=== PATIENT | female | born 1975 | race African-American/Black ===

== ENCOUNTER 2019-06-15 22:09 | Emergency (ER) | payer SELFPAY ==
[~2019-06-15] VITALS: Ht 165.1 cm; Wt 62.0 kg
[2019-06-16] MEDS ORDERED: KETOROLAC 30MG/ML VIAL IM ONE
[2019-06-16 00:25] VITALS: BP 114/78
== END 2019-06-16 00:25 | disposition home or self-care (01) ==
LOC: ER 22:09
DX: H60.93 Unspecified otitis externa, bilateral (principal); F12.10 Cannabis abuse, uncomplicated; F17.200 Nicotine dependence, unspecified, uncomplicated
CPT/HCPCS: 81025; 99283; J1885

== ENCOUNTER 2019-12-27 00:03 | Emergency (ER) | payer MEDICAID ==
[~2019-12-27] VITALS: Ht 165.1 cm; Wt 64.0 kg
[2019-12-27 07:32] VITALS: BP 112/70
== END 2019-12-27 07:34 | disposition home or self-care (01) ==
LOC: ER 00:03
DX: Z00.00 Encounter for general adult medical examination without abnormal findings (principal); Z85.9 Personal history of malignant neoplasm, unspecified; F12.10 Cannabis abuse, uncomplicated; Z88.6 Allergy status to analgesic agent
CPT/HCPCS: 72170; 99283

== ENCOUNTER 2024-05-28 18:04 | Emergency (ER) | payer MEDICAID ==
[~2024-05-28] VITALS: Ht 167.6 cm; Wt 70.0 kg
[2024-05-28] MEDS: ONDANSETRON HCL 4MG/2ML INJ IV ONE (18:39)
[2024-05-28] MEDS: SODIUM CHLORIDE 0.9% 1,000 ML IV ONE (18:40)
[2024-05-28 18:45] VITALS: PULSE 99; RESP 12; O2SAT 100
[2024-05-28] MEDS: IPRATROPIUM BROMIDE (0.02%) 0.5MG/2.5ML NEB HHN STA (18:45)
[2024-05-28] MEDS: ALBUTEROL (0.083%) 2.5MG/3ML NEB HHN SCH (18:45)
[2024-05-28 18:53] LABS: BASOPHILS % 0.9 % (0.0-2.0); EOSINOPHILS % 0.2 % (0.0-5.0); HEMATOCRIT. 37.9 % (36.0-48.0); HEMOGLOBIN. 11.9 g/dL (12.0-16.0); LYMPHOCYTES % 29.7 % (20.0-50.0); MEAN CORPUSCULAR HEMOGLOBIN 26.4 pg (28.0-32.0); MEAN CORPUSCULAR HGB CONC 31.4 g/dL (31.0-37.0); MEAN CORPUSCULAR VOLUME 84.2 fL (81.0-99.0); MONOCYTES % 6.4 % (2.0-8.0); NEUTROPHILS % 62.8 % (40.0-76.0); PLATELET 250 x1000/uL (130-400); RED CELL DISTRIBUTION WIDTH 14.3 % (11.6-14.6); WHITE BLOOD COUNT 5.1 x1000/uL (4.5-11.0)
[2024-05-28 19:00] LABS: CHLORIDE 107 mEq/L (98-107); POTASSIUM 3.5 mEq/L (3.5-5.1); SODIUM 141 mEq/L (136-145)
[2024-05-28 19:01] LABS: CALCIUM 9.3 mg/dL (8.7-10.4); CARBON DIOXIDE 23 mEq/L (21-32)
[2024-05-28 19:06] LABS: CREATININE 0.7 mg/dL (0.6-1.0); ETHANOL BLOOD 132 mg/dL (<10); GLUCOSE 102 mg/dL (70-105); UREA NITROGEN BLOOD 12 mg/dL (9-23)
[2024-05-28 19:07] LABS: TROPONIN I HIGH SENSITIVITY 7 ng/L (3.0-34)
[2024-05-28 19:19] LABS: HCG SCREEN NEGATIVE
[2024-05-28 19:21] LABS: INR 0.9; PROTHROMBIN TIME 10.4 sec (9.6-11.0)
[2024-05-28] MEDS: MORPHINE SULFATE 4 MG/ML INJ (FOR IV/IM USE) IV ONE (19:22)
[2024-05-28] MEDS: LORAZEPAM 2MG/ML INJ IV ONE (20:24)
[2024-05-28 21:08] LABS: TROPONIN I HIGH SENSITIVITY 8 ng/L (3.0-34)
[2024-05-28 22:35] VITALS: BP 122/72; PULSE 106; RESP 11; TEMP 97.9
== END 2024-05-28 23:22 | disposition home or self-care (01) ==
LOC: ER 18:04
DX: R06.02 Shortness of breath (principal); F12.10 Cannabis abuse, uncomplicated; Z85.9 Personal history of malignant neoplasm, unspecified
CPT/HCPCS: 80048; 80320; 84703; 85025; 85044; 85610; 84484; 36415; 71045; 94640; 93005; 96361; 96374; 96375; 99285; J2060; J2405; J2270; Z7610 ×3; J7030; G0480